=== PATIENT | female | born 1965 | race African-American/Black ===

== ENCOUNTER 2017-06-20 09:34 | Outpatient (CLI) | payer SELFPAY ==
--- NOTE | 2017-06-25 14:51 | MMO ---
BILATERAL SCREENING MAMMOGRAM: Date: 06/20/17 INDICATION: Annual exam. COMPARISON: Prior exam dated 02/10/14. FINDINGS: Interpretation of this exam was assisted with computer-aided detection. The breast parenchyma is heterogeneously dense. There are benign and vascular appearing calcifications bilaterally. No suspicious mass, cluster of microcalcifications, or area of architectural distortion is evident. IMPRESSION: BIRADS 2: Benign Finding(s) Recommend routine annual mammographic screening. POS: [facility]
== END 2017-06-20 09:35 | disposition home or self-care (01) ==
LOC: SCSMAMMO 09:34
PROVIDERS: ATTEND Family Medicine
DX: Z12.31 Encounter for screening mammogram for malignant neoplasm of breast (principal)
CPT/HCPCS: 77067

== ENCOUNTER 2017-07-12 09:11 | Emergency (ER) | payer BC, SELFPAY ==
[2017-07-12] MEDS ORDERED: SUMAtriptan Succinate 25 MG TAB PO SCH (10:00)
[2017-07-12 10:01] LABS: #Basophils 0.1 thou/uL (0.0-0.2); #Eosinphils 0.1 thou/uL (0.0-0.7); #Lymphocytes 3.2 thou/uL (1.20-3.40); #Monocytes 0.2 thou/uL (0.11-0.59); #Neutrophils 3.5 thou/uL (1.40-6.50); %Basophils 1.1 % (0.0-1.0); %Eosinophils 0.8 % (0.0-10.0); %Monocytes 2.6 % (0.0-10.0); %Neutrophils 50.4 % (42.0-75.0); Hemoglobin 12.5 g/dL (12.0-16.0); Mean Corpuscular HGB CONC 32.4 g/dL (32.0-36.0); Mean Corpuscular Hemoglobin 29.4 pg (27.0-31.0); Mean Corpuscular Volume 90.9 fl (81.0-99.0); Mean Platelet Volume 6.9 fL (7.4-10.4); Platelet Count 422 thou/uL (130-400); RBC Distribution Width 12.3 % (11.5-14.5); Red Blood Cell (RBC) Count 4.23 mill/uL (4.20-5.40)
[2017-07-12 10:30] LABS: ALT (SGPT) 14 U/L (8-55); AST (SGOT) 22 U/L (5-34); Albumin 4.4 g/dL (3.5-5.0); Alkaline Phosphatase 107 U/L (40-150); Anion Gap 14 mmol/L (10-20); BUN (Urea Nitrogen) 12 mg/dL (9.8-20.1); Bilirubin, Total 0.4 mg/dL (0.2-1.2); Calc. Creatinine Clearance 0 mL/min (70-130); Calcium 9.5 mg/dL (7.8-10.44); Carbon Dioxide 27 mmol/L (22-29); Chloride 100 mmol/L (98-107); Estimated GFR-MDRD 82; Globulin 3.7 g/dL (2.4-3.5); Glucose 99 mg/dL (70-105); Protein, Total 8.1 g/dL (6.0-8.3); Sodium 137 mmol/L (136-145)
[2017-07-12 10:32] LABS: CKMB 1.2 ng/mL (0-6.6); Troponin I Less than 0.010 ng/mL (< 0.028)
[2017-07-12] MEDS ORDERED: Acetaminophen 500 MG TAB ONE (11:21)
--- NOTE | 2017-07-14 17:51 | EKG ---
Test Reason : Blood Pressure : / mmHG Vent. Rate : 066 BPM Atrial Rate : 066 BPM P-R Int : 154 ms QRS Dur : 080 ms QT Int : 432 ms P-R-T Axes : 060 -06 006 degrees QTc Int : 452 ms Normal sinus rhythm T wave abnormality, consider anterior ischemia Abnormal ECG Unchanged since 16-SEP-2015 Confirmed by BRIANA FRANCO, KIERSTEN ([id number]), business editor OLI CALZADA ([id number] on 07/14/2017 5:50:49 PM Referred By: Confirmed By:KIERSTEN WARREN MD
== END 2017-07-12 11:26 | disposition home or self-care (01) ==
LOC: ERS 09:11
DX: R51 Headache (principal); I10 Essential (primary) hypertension; F41.9 Anxiety disorder, unspecified; Z79.899 Other long term (current) drug therapy
CPT/HCPCS: 36415; 80053; 82553; 84484; 85025; 93005; 96360

== ENCOUNTER 2017-07-27 21:00 | Emergency (ER) | payer BC ==
--- NOTE | 2017-07-27 21:49 | RAD ---
CHEST ONE VIEW: 07/27/17 HISTORY: Dyspnea, shortness of breath. COMPARISON: 02/10/15. FINDINGS: Normal cardiac silhouette. Pulmonary vessels and hilum are normal. Costophrenic angles are clear. No mass, no consolidation. No pneumothorax or osseous abnormalities. Questionable nodule projecting over the left costophrenic angle. IMPRESSION: Questionable nodule projecting over the left costophrenic angle. Code LN POS: [facility]
[2017-07-27 22:14] LABS: #Eosinphils 0.1 thou/uL (0.0-0.7); #Lymphocytes 2.2 thou/uL (1.20-3.40); #Monocytes 0.4 thou/uL (0.11-0.59); #Neutrophils 4.8 thou/uL (1.40-6.50); %Basophils 0.6 % (0.0-1.0); %Eosinophils 1.2 % (0.0-10.0); %Monocytes 5.3 % (0.0-10.0); %Neutrophils 63.9 % (42.0-75.0); Hemoglobin 11.4 g/dL (12.0-16.0); Mean Corpuscular HGB CONC 33.1 g/dL (32.0-36.0); Mean Corpuscular Hemoglobin 29.9 pg (27.0-31.0); Mean Corpuscular Volume 90.5 fl (81.0-99.0); Mean Platelet Volume 6.6 fL (7.4-10.4); Platelet Count 405 thou/uL (130-400); RBC Distribution Width 12.3 % (11.5-14.5); Red Blood Cell (RBC) Count 3.82 mill/uL (4.20-5.40); White Blood Cell (WBC) Count 7.5 thou/uL (4.8-10.8)
[2017-07-27 22:34] LABS: ALT (SGPT) 11 U/L (8-55); AST (SGOT) 16 U/L (5-34); Alkaline Phosphatase 100 U/L (40-150); Anion Gap 12 mmol/L (10-20); BUN (Urea Nitrogen) 13 mg/dL (9.8-20.1); Bilirubin, Total 0.3 mg/dL (0.2-1.2); Calc. Creatinine Clearance 0 mL/min (70-130); Calcium 8.9 mg/dL (7.8-10.44); Carbon Dioxide 23 mmol/L (22-29); Chloride 106 mmol/L (98-107); Estimated GFR-MDRD Greater than 90; Globulin 3.5 g/dL (2.4-3.5); Glucose 123 mg/dL (70-105); Potassium 3.6 mmol/L (3.5-5.1); Protein, Total 7.5 g/dL (6.0-8.3); Sodium 137 mmol/L (136-145)
[2017-07-27 22:39] LABS: CKMB 1.3 ng/mL (0-6.6); Troponin I Less than 0.010 ng/mL (< 0.028)
[2017-07-27] MEDS ORDERED: hydrALAZINE 20 MG/ML VIAL ONE (22:44)
== END 2017-07-27 23:56 | disposition home or self-care (01) ==
LOC: ERS 21:00
DX: R06.00 Dyspnea, unspecified (principal); I10 Essential (primary) hypertension; F41.9 Anxiety disorder, unspecified; Z79.899 Other long term (current) drug therapy
CPT/HCPCS: 36415; 71045; 80053; 82553; 83880; 84484; 85025; 93005; 96374; J0360

== ENCOUNTER 2018-01-28 23:56 | Emergency (ER) | payer BC, SELFPAY ==
[2018-01-29] MEDS ORDERED: cloNIDine 0.1 MG TAB ONE (01:41)
[2018-01-29 02:39] LABS: #Basophils 0.1 thou/uL (0.0-0.2); #Eosinphils 0.1 thou/uL (0.0-0.7); #Lymphocytes 3.7 thou/uL (1.20-3.40); #Monocytes 0.3 thou/uL (0.11-0.59); #Neutrophils 4.5 thou/uL (1.40-6.50); %Basophils 1.2 % (0.0-1.0); %Eosinophils 0.8 % (0.0-10.0); %Lymphocytes 42.9 % (21.0-51.0); %Monocytes 3.5 % (0.0-10.0); %Neutrophils 51.6 % (42.0-75.0); Hemoglobin 13.5 g/dL (12.0-16.0); Mean Corpuscular HGB CONC 32.3 g/dL (32.0-36.0); Mean Corpuscular Hemoglobin 30.1 pg (27.0-31.0); Mean Corpuscular Volume 93.3 fL (78.0-98.0); Mean Platelet Volume 7.7 fL (7.4-10.4); Platelet Count 413 thou/uL (130-400); RBC Distribution Width 12.2 % (11.5-14.5); Red Blood Cell (RBC) Count 4.48 mill/uL (4.20-5.40); White Blood Cell (WBC) Count 8.7 thou/uL (4.8-10.8)
[2018-01-29 03:00] LABS: ALT (SGPT) 10 U/L (8-55); AST (SGOT) 16 U/L (5-34); Albumin 4.6 g/dL (3.5-5.0); Alkaline Phosphatase 115 U/L (40-150); Anion Gap 16 mmol/L (10-20); BUN (Urea Nitrogen) 10 mg/dL (9.8-20.1); Bilirubin, Total 0.4 mg/dL (0.2-1.2); Calc. Creatinine Clearance 0 mL/min (70-130); Calcium 9.9 mg/dL (7.8-10.44); Carbon Dioxide 22 mmol/L (22-29); Chloride 103 mmol/L (98-107); Estimated GFR-MDRD 75; Globulin 4.2 g/dL (2.4-3.5); Glucose 91 mg/dL (70-105); Lipase 7 U/L (8-78); Potassium 3.5 mmol/L (3.5-5.1); Protein, Total 8.8 g/dL (6.0-8.3); Sodium 137 mmol/L (136-145)
[2018-01-29 03:04] LABS: CKMB 1.3 ng/mL (0-6.6); Troponin I Less than 0.010 ng/mL (< 0.028)
--- NOTE | 2018-01-29 07:33 | RAD ---
PA AND LATERAL CHEST: Date: 01/29/18 INDICATION: History of high blood pressure. COMPARISON: Prior study dated 07/27/17. FINDINGS: No confluent air space opacity is evident. Heart size is upper limits of normal. There is tortuosity of the aorta. Nodular opacity within the left lower lobe seen on the comparison examination persists. Distal smaller nodular opacity is now present within the right upper lobe, measuring 8 mm. No pleura l effusion or pneumothorax is evident. IMPRESSION: New 8 mm pulmonary nodule in the right upper lobe. Nodularity opacity suspected within the left lower lobe on the comparison chest radiograph persists. Recommend further evaluation with a CT of the thor ax with IV contrast. CODE LN. POS: [facility]
== END 2018-01-29 03:39 | disposition home or self-care (01) ==
LOC: ERS 23:56
DX: R07.82 Intercostal pain (principal); I10 Essential (primary) hypertension; F41.9 Anxiety disorder, unspecified; Z79.899 Other long term (current) drug therapy
CPT/HCPCS: 36415; 71046; 80053; 82553; 83690; 84484; 85025; 93005

== ENCOUNTER 2018-05-20 08:53 | Outpatient (CLI) | payer BC ==
--- NOTE | 2018-05-20 09:51 | RAD ---
PA AND LATERAL CHEST RADIOGRAPH: Date: 05-20-18 History: Dyspnea. Comparison: 01-29-18 FINDINGS: Cardiac silhouette and pulmonary vasculature are within normal limits. Lungs are clear. Previously de scribed nodular density within the right upper lung zone and previously described nodular opacity at the left lung base noted on the prior exam are not appreciated on this exam and may have been related to superimposition of structures on the prior study. No consolidation or pleural fluid is seen. Card iac silhouette and pulmonary vasculature are within normal limits. Osseous structures are intact. IMPRESSION: No acute cardiopulmonary process. POS: [facility]
== END 2018-05-20 08:54 | disposition home or self-care (01) ==
LOC: RAD 08:53
PROVIDERS: ATTEND Internal Medicine Critical Care Medicine
DX: R06.00 Dyspnea, unspecified (principal)
CPT/HCPCS: 71046

== ENCOUNTER 2018-10-30 01:46 | Emergency (ER) | payer BC, SELFPAY ==
[2018-10-30 02:35] LABS: #Basophils 0.1 thou/uL (0.0-0.2); #Eosinphils 0.1 thou/uL (0.0-0.7); #Lymphocytes 3.3 thou/uL (1.20-3.40); #Monocytes 0.3 thou/uL (0.11-0.59); #Neutrophils 3.8 thou/uL (1.40-6.50); %Basophils 1.3 % (0.0-1.0); %Eosinophils 1.2 % (0.0-10.0); %Lymphocytes 43.5 % (21.0-51.0); %Monocytes 3.9 % (0.0-10.0); %Neutrophils 50.2 % (42.0-75.0); Mean Corpuscular HGB CONC 32.4 g/dL (32.0-36.0); Mean Corpuscular Hemoglobin 29.7 pg (27.0-31.0); Mean Corpuscular Volume 91.6 fL (78.0-98.0); Mean Platelet Volume 7.6 fL (7.4-10.4); Platelet Count 378 thou/uL (130-400); RBC Distribution Width 12.4 % (11.5-14.5); Red Blood Cell (RBC) Count 4.37 mill/uL (4.20-5.40); White Blood Cell (WBC) Count 7.6 thou/uL (4.8-10.8)
[2018-10-30 02:51] LABS: Anion Gap 15 mmol/L (10-20); BUN (Urea Nitrogen) 10 mg/dL (9.8-20.1); Calc. Creatinine Clearance 0 mL/min (70-130); Calcium 9.9 mg/dL (7.8-10.44); Carbon Dioxide 21 mmol/L (22-29); Chloride 106 mmol/L (98-107); Estimated GFR-MDRD 87; Glucose 103 mg/dL (70-105); Potassium 4.2 mmol/L (3.5-5.1); Sodium 138 mmol/L (136-145)
--- NOTE | 2018-10-30 07:40 | RAD ---
EXAM: Single view of the chest HISTORY: Dyspnea COMPARISON: 07/27/2017 FINDINGS: Single view of the chest shows a normal sized cardiomediastinal silhouette. There is no eduardo dence of consolidation, mass, or pleural effusion. The bones are unremarkable. IMPRESSION: No evidence of acute cardiopulmonary disease
--- NOTE | 2018-11-01 12:10 | EKG ---
Test Reason : SOB Blood Pressure : / mmHG Vent. Rate : 073 BPM Atrial Rate : 073 BPM P-R Int : 164 ms QRS Dur : 076 ms QT Int : 394 ms P-R-T Axes : 051 -10 015 degrees QTc Int : 434 ms Normal sinus rhythm Possible Left atrial enlargement Left ventricular hypertrophy Nonspecific T wave abnormality Abnormal ECG Confirmed by RAGHAV ARGUETA DO ([id number]), digital editor NICHOLAS KELLER ([id number]) on 11/01/2018 12:10:40 PM Referred By: Confirmed By:RAGHAV ARGUETA DO
== END 2018-10-30 03:45 | disposition home or self-care (01) ==
LOC: ERS 01:46
DX: I10 Essential (primary) hypertension (principal)
CPT/HCPCS: 36415; 71045; 80048; 83880; 84484; 85025; 93005

== ENCOUNTER 2019-01-22 04:25 | Emergency (ER) | payer BC, SELFPAY | END 2019-01-22 04:45 | disposition home or self-care (01) | LOC: ERS 04:25 | DX: D17.1 Benign lipomatous neoplasm of skin and subcutaneous tissue of trunk (principal); I10 Essential (primary) hypertension; I47.1 Supraventricular tachycardia; F41.9 Anxiety disorder, unspecified | CPT/HCPCS: 99283 ==

== ENCOUNTER 2019-01-30 08:23 | Outpatient (CLI) | payer BC, OTHER ==
--- NOTE | 2019-01-30 09:20 | RAD ---
Chest 2 views: 01/30/2019 COMPARISON: 10/30/2018 HISTORY: Dyspnea FINDINGS: No pneumothorax, pleural fluid, focal consolidation, or alveolar edema. Heart and mediastin al contours are unremarkable. Postoperative clips are noted in the right upper quadrant suggesting prior cholecystectomy. IMPRESSION: No acute findings.
== END 2019-01-30 08:24 | disposition home or self-care (01) ==
LOC: RAD 08:23
PROVIDERS: ATTEND Internal Medicine Critical Care Medicine
DX: R06.00 Dyspnea, unspecified (principal)
CPT/HCPCS: 71046

== ENCOUNTER 2019-07-07 07:19 | Outpatient (CLI) | payer BC ==
--- NOTE | 2019-07-07 08:26 | ULT ---
ULTRASOUND ABDOMEN: Date: 07/07/2019 HISTORY: 53-year-old female with abdominal pain. FINDINGS: The patient is post cholecystectomy. The common duct measures 7.0 mm in diameter. The liver, spleen, pancreas, kidneys, and visualized portions of the aorta and IVC are normal. No free fluid is seen. IMPRESSION: Status post cholecystectomy. Otherwise unremarkable exam. POS: OFF
== END 2019-07-07 07:20 | disposition home or self-care (01) ==
LOC: ULT 07:19
PROVIDERS: ATTEND Family Medicine
DX: R10.9 Unspecified abdominal pain (principal); Z90.49 Acquired absence of other specified parts of digestive tract
CPT/HCPCS: 93975

== ENCOUNTER 2022-10-18 03:43 | Emergency (ER) | payer BC ==
[2022-10-18 04:38] LABS: #Monocytes 0.3 thou/uL (0.11-0.59); %Basophils 0.2 % (0.0-1.0); %Eosinophils 0.5 % (0.0-10.0); %Lymphocytes 35.2 % (21.0-51.0); %Monocytes 3.3 % (0.0-10.0); %Neutrophils 60.2 % (42.0-75.0); Hemoglobin 13.2 g/dL (12.0-16.0); Mean Corpuscular HGB CONC 32.7 g/dL (32.0-36.0); Mean Corpuscular Hemoglobin 29.6 pg (27.0-31.0); Mean Corpuscular Volume 90.6 fl (78.0-98.0); Platelet Count 416 10x3/uL (130-400); RBC Distribution Width 12.8 % (11.5-14.5); Red Blood Cell (RBC) Count 4.46 mill/uL (4.20-5.40); White Blood Cell (WBC) Count 8.2 10x3/uL (4.8-10.8)
[2022-10-18] MEDS ORDERED: hydrOXYzine 25 MG TAB ONE (04:41)
[2022-10-18 05:04] LABS: ALT (SGPT) 9 U/L (8-55); AST (SGOT) 17 U/L (5-34); Albumin 4.6 g/dL (3.5-5.0); Alkaline Phosphatase 164 U/L (40-110); Anion Gap 14 mmol/L (10-20); BUN (Urea Nitrogen) 11 mg/dL (9.8-20.1); Bilirubin, Total 0.2 mg/dL (0.2-1.2); Calc. Creatinine Clearance 0 mL/min (70-130); Calcium 9.7 mg/dL (7.8-10.44); Carbon Dioxide 24 mmol/L (22-29); Chloride 104 mmol/L (98-107); Estimated GFR 70; Globulin 4.1 g/dL (2.4-3.5); Glucose 130 mg/dL (70-105); Potassium 3.5 mmol/L (3.5-5.1); Protein, Total 8.7 g/dL (6.0-8.3); Sodium 138 mmol/L (136-145)
== END 2022-10-18 07:09 | disposition home or self-care (01) ==
LOC: ERS 03:43
DX: F41.9 Anxiety disorder, unspecified (principal); I10 Essential (primary) hypertension
CPT/HCPCS: 71045; 80053; 84484; 85025; 93005